=== PATIENT | female | born 1995 | race Caucasian/White ===

== ENCOUNTER 2020-03-15 18:30 | Outpatient (CLI) | payer SELFPAY ==
[2020-03-15 18:45] VITALS: BP 136/92; PULSE 73; TEMP 36.7; O2SAT 99
[2020-03-15 18:47] VITALS: PULSE 74; O2SAT 99
[2020-03-15 18:56] VITALS: BMI 31.8
[2020-03-15] MEDS: Lactated Ringers 1,000 ML 999 ML IV (20:07)
[2020-03-15] MEDS: Betamethasone/Betamethasone 30 MG/5 ML Vial 12 MG IM (20:18)
[2020-03-15 20:42] VITALS: BP 120/75; PULSE 69; TEMP 36.7
[2020-03-15 20:43] VITALS: PULSE 70; O2SAT 99
[2020-03-15 20:46] LABS: Bacteria 0 SEEN /hpf (None Seen); Mucous, Urine 0 SEEN /hpf (<or=2+); Red Blood Cells-Urine 0 SEEN /hpf (0-5); White Blood Cells 0 SEEN /hpf (0-5)
[2020-03-15 20:50] LABS: Color, Urine Yellow (Yellow); Glucose, Dipstick Normal (Normal); Ketone-Dipstick Negative (Negative); Leukocyte Esterase-Dipstick 25 /ul (Negative); Nitrite-Dipstick Negative (Negative); Occult Blood-Urine 250 /ul (Negative); Protein-Dipstick Negative (Negative); Urine Bilirubin Dipstick Negative (Negative); Urine Clarity Clear (Clear); Urine Urobilinogen Normal (Normal)
[2020-03-15 21:13] LABS: Squamous Epithelial Cells - UA 0-5 SEEN /hpf (5-10)
[2020-03-15 21:25] VITALS: PULSE 72; O2SAT 100
--- NOTE | 2020-03-16 09:51 | OB.TRI.HP_ITS ---
History of Present Illness Date of Service: 03/15/20 Was patient seen by the physician?: No Reason For Visit: BLEEDING, r/o labor Date of Service: 03/15/20 Final CLEMENCIA: 04/27/20 Final CLEMENCIA Source: LMP Gestational age: 34 Weeks and 0 Days History of Present Illness: I received a call from [employer] Officer- to transport patient to [place] to rule out labor. @ 33.6 weeks that had some vaginal spotting and crocodile farmer reports that she could feel the head and that she was about 1-2cm dilated. upon arrival at hospital pt was noted to have contractions but did not rate them as being painful. No other complaints. Allergies No Known Allergies Allergy (Verified 03/16/20 06:30) Laboratory Studies: Laboratory Tests 03/15/20 Range/Units 19:30 Urine Color Yellow (Yellow) Urine Clarity Clear (Clear) Urine pH 7.0 (5.0 - 8.0) Ur Specific [place] 1.010 (1.002-1.030) Urine Protein Negative (Negative) mg/dl Urine Glucose (UA) Normal (Normal) mg/dl Urine Ketones Negative (Negative) mg/dl Urine Occult Blood 250 H (Negative) /ul Urine Nitrite Negative (Negative) Urine Bilirubin Negative (Negative) mg/dL Urine Urobilinogen Normal (Normal) mg/dl Ur Leukocyte Esterase 25 H (Negative) /ul Urine RBC 0 SEEN (0-5) /hpf Urine WBC 0 SEEN (0-5) /hpf Ur Squamous Epith Cells 0-5 SEEN (5-10) /hpf Urine Bacteria 0 SEEN (None Seen) /hpf Urine Mucus 0 SEEN (<or=2+) /hpf Physical Exam Vitals: Vital Signs Temp Pulse BP Pulse Ox 98.1 F 72 120/75 100 03/15/20 20:42 03/15/20 21:25 03/15/20 20:42 03/15/20 21:25 Presentation: Cephalic Cervix Dilation (cm): 1.5 Station: -1 Effacement (%): 60 NST - FHR Rate Baby A Baseline: 140 Variability:: Moderate Accelerations:: 15 x 15 Decelerations:: None NST Reactive:: Yes FHR Category:: Category I Uterine Activity:: started at q2-4 min then irregular and progoress to occasional ctx only. Impression/Plan @ 33.6 weeks- r/o labor, contractions 1) pt was monitored for several hours with no change in cervical exam- pt was given option to stay overnight for further observation or to be dc home and return if ctx return and become more intense. pt opted for dc home 2) Celestone 12mg IM given- will repeat second dose in 24 hrs 3)
== END 2020-03-15 22:55 | disposition home or self-care (01) ==
LOC: WPOUT 18:41 → WP 18:41
PROVIDERS: Visit Provider Obstetrics & Gynecology
DX: O47.03 False labor before 37 completed weeks of gestation, third trimester (principal); Z3A.33 33 weeks gestation of pregnancy
CPT/HCPCS: 59025; 59050; 81001; 96372; 99218; J7120; G0378; J0702

== ENCOUNTER 2020-03-16 06:45 | Inpatient (IN) | payer SELFPAY ==
[2020-03-15 18:56] VITALS: BMI 31.8
[2020-03-16] VITALS (21 sets, daily range): BP systolic 128–142; BP diastolic 77–94; PULSE 61–108; RESP 16–18; TEMP 36.2–37.1; O2SAT 97–99; BMI 31.1
[2020-03-16 07:29] LABS: Color, Urine Yellow (Yellow); Glucose, Dipstick Normal (Normal); Ketone-Dipstick Negative (Negative); Leukocyte Esterase-Dipstick 500 /ul (Negative); Mucous, Urine 0 SEEN /hpf (<or=2+); Nitrite-Dipstick Negative (Negative); Occult Blood-Urine 150 /ul (Negative); Protein-Dipstick Negative (Negative); Urine Bilirubin Dipstick Negative (Negative); Urine Clarity Clear (Clear); Urine Urobilinogen Normal (Normal)
[2020-03-16 07:40] LABS: Amphetamine Urine VISTA NEGATIVE (<1000 ng/mL); Barbiturate Urine VISTA NEGATIVE (< 200 ng/mL); Benzodiazepine Urine VISTA NEGATIVE (< 200 ng/mL); Cocaine Urine VISTA NEGATIVE (< 300 ng/mL); Ecstacy Urine VISTA NEGATIVE (< 500 ng/mL); Methadone Urine VISTA NEGATIVE (< 300 ng/mL); PCP Urine VISTA NEGATIVE (< 25 ng/mL); THC Urine VISTA NEGATIVE (< 50 ng/mL); Vista UDS pH Range 6
[2020-03-16] MEDS: Lactated Ringers 1,000 ML 999 ML IV (07:40)
[2020-03-16 07:41] LABS: Squamous Epithelial Cells - UA 0-5 SEEN /hpf (5-10)
[2020-03-16 07:43] LABS: Red Blood Cells-Urine 0-5 SEEN /hpf (0-5)
[2020-03-16 07:44] LABS: White Blood Cells 0-5 SEEN /hpf (0-5)
[2020-03-16 07:46] LABS: Bacteria RARE /hpf (None Seen)
[2020-03-16 07:58] LABS: Absolute Lymphocyte Count 0.86 X10^3/uL (0.83-4.51); Absolute Neutrophil Count 13.2 X10^3/uL (2.0-7.7); Basophil# 0.02 X10^3/uL; Basophil% 0.1 % (0-1); Eosinophil# 0.19 X10^3/uL; Eosinophils% 1.3 % (0-5); Hematocrit 36.2 % (37-47); Hemoglobin 12.6 g/dL (12.0-15.0); Lymphocyte # 0.86 X10^3/ul (4.0); Lymphocyte % 5.8 % (19-41); Mean Corp Hgb Conc 34.8 g/dL (32-36); Mean Corpuscular Hgb 29.8 pg (27.0-32.0); Mean Corpuscular Volume 85.6 fL (81-99); Mean Platelet Vol. 10.5 fl (6.2-12.0); Monocyte# 0.42 X10^3/uL; Monocyte% 2.8 % (0-10); NRBC Flagged by Analyzer 0 % (0-5); Neutrophil # 13.22 X10^3/uL (2.7-7.7); Neutrophil % 88.9 % (47-70); POSITIVE MORPHOLOGY YES; Platelet Count 210 K/mm3 (150-450); RBC Distribution Width CV 13.6 % (11.6-14.6); Red Blood Count 4.23 M/mm3 (4.2-5.4); White Blood Count 14.9 K/mm3 (4.4-11.0)
[2020-03-16 07:59] LABS: Differential Indicated SCAN CRITERIA MET
--- NOTE | 2020-03-16 08:16 | HP.PCM_ITS ---
- Problem List (1) 34 weeks gestation of Status: Acute (2) labor Status: Acute Qualifiers: labor trimester: third trimester Fetus number: single or unspecified fetus History Date of Admission: 03/16/20 Final CLEMENCIA: 04/27/20 Gestational age: 34 Weeks and 0 Days History of this : This is a 24 year-old, G [1], P [0], at 34.0 weeks gestational age that presents with labor. 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 Patient is unknown to practice. Per records, no significant medical history. Allergies No Known Allergies Allergy (Verified 03/16/20 06:30) Smoking Status: Never smoker Alcohol: None Number of Fetus(es): 1 NST - FHR Rate Baby A Baseline: 140 Variability:: Moderate Accelerations:: 10 x 10 Decelerations:: None NST Reactive:: Appropriate for gestational age History Past Pregnancies: Past Pregnancies Delivery Date Name GA/ Weeks Outcome Route Wt Sex Labor Length Anesthesia Delivery Location Provider FOB Labs: O+ GBS- unknown COVID- 19 negative Expected Infant Delivery Method: Spontaneous Vaginal Review of Systems Constitutional: Denies: Chills, Fever HEENT: Denies: Head Aches Cardiovascular: Denies: Chest Pain Respiratory: Denies: Cough Genitourinary: Denies: Dysuria Physical Exam Vitals: Vital Signs Temp Pulse BP Pulse Ox 98.4 F 61 131/82 H 97 03/16/20 08:08 03/16/20 08:15 03/16/20 08:11 03/16/20 08:15 General: Alert, Oriented x3 Cardiovascular: Regular rate Lungs: Normal air movement Abdomen: Soft, Non Tender Neurological: Cranial nerves II-XII grossly intact Cervix Dilation (cm): 4 Assessment/Plan All Active Problems 34 weeks gestation of (Acute) labor (Acute) This is a 24 year-old, G [1], P [0], at 34 weeks gestational age in labor. Admit to labor and delivery Draw all labs IV fluids per protocol Rapid GBS COVID-19 negative Celestone 12 mg IM x 1 now and repeat in [address] Albarado managing patient and is collaborating physician
--- NOTE | 2020-03-16 08:21 | PCM.PN.BLA ---
Progress Note At bedside with pt. Admitted at 34 wks with threatened labor. She is uncomfortable with ctx's. Category 1 tracing. S/p 1 dose of BMZ. Will start PCN for GBS unknown. panel pending. Reviewed pain control options with the pt. Will recheck 4 hours from last check if no change clinically. Pt and partner's questions answered. STROKE Vital Signs/Narrative: Vital Signs Temp Pulse BP Pulse Ox 03/16/20 08:15 61 97 03/16/20 08:11 61 131/82 H 03/16/20 08:08 98.4 F 03/16/20 06:24 97.9 F 61 142/94 H 98
[2020-03-16] MEDS: Acetaminophen 500 MG Tablet PO (08:27)
[2020-03-16 08:28] LABS: Platelet Estimate ADEQUATE (ADEQ); Red Cell Morphology NORM C+C NORMAL (NORM C&C)
[2020-03-16 08:33] LABS: Rubella IgG Non-Reactive (Nonreactive)
[2020-03-16] MEDS: Lactated Ringers 1,000 ML 50 ML IV (08:42)
[2020-03-16 09:01] LABS: Group B Strep DNA By PCR Negative (Negative); Internal Control PASS; Probe Check PASS; Specimen Processing Control PASS
[2020-03-16 09:06] LABS: HIV - WCH Non-Reactive (Nonreactive); Hepatitis B Surface Antigen Non-Reactive (Nonreactive); Hepatitis C Antibody Non-Reactive (Nonreactive)
[2020-03-16] MEDS: Oxytocin 30 units/NS 500 ml 30 UNITS/500 ML IV.SOLN 334 UNITS IV (09:35)
--- NOTE | 2020-03-16 09:54 | PCM.OPRPT ---
Vaginal Delivery Maternal Presentation: Active Labor Amniotic Fluid Description: Clear Final CLEMENCIA: 04/27/20 Gestational age: 34 Weeks and 0 Days Date of Procedure: 03/16/20 Pre-Operative Diagnosis: laor Post-Operative Diagnosis: same Surgery/ Procedure Performed: Spontaneous Vaginal Delivery Type of Anesthesia: Local with 1% lidocaine - 15 cc Description of Procedure: A vigorous male was delivered [DAJA] over degree perineal laceration with a small right-sided laceration. The remainder the was delivered with maternal pushing and gentle traction only in less than 15 seconds. The Pitocin infusion was initiated for active management of the third stage. The cord was clamped and cut [after 1 minute]. The infant was attended to by the waiting nursing staff. The placenta was delivered spontaneously and intact. The cervix and vagina were intact. The first-degree vaginal and perineal laceration were repaired with 3-0 Vicryl suture in a running standard fashion. Hemostasis was assured. Sponge and needle counts were correct. A vaginal sweep was completed by me. Delivery time 0932 Presentation: DAJA Placental Delivery Description: Spontaneous Placenta Disposition: Sent to Pathology Cord Vessel Description: 3 Vessels Cord Gases drawn per routine: ABG, VBG Cord Entanglement: None Drain: - - none Estimated Blood Loss: 400 Infant A gender: Male Episiotomy Description: None Laceration: 1st degree - perineal Medications given after delivery: IV Pitocin Complications: None
[2020-03-16 11:46] LABS: Chlamydia Trachomatis by PCR Negative (Negative); Neisserai gonorrhoeae by PCR Negative (Negative); Specimen Processing Control PASS
[2020-03-16 11:47] LABS: Probe Check PASS; Sample Adequacy Control PASS
--- NOTE | 2020-03-16 13:00 | NURSING ---
Mother viewed pumping at this time. at bedside. Reminders for settings placed on whiteboard by this RN for suction and cycles. Patient educated on how to tell how long pumping session has been going for. Reminded to pump every three hours. Patient verbalizes understanding. Will continue to monitor and assist.
[2020-03-17 00:25] VITALS: BP 133/78; PULSE 72; RESP 18; TEMP 36.9
[2020-03-17 03:33] LABS: Rapid Plasmin Reagin (RPR) NONREACTIVE (NONREACTIVE)
[2020-03-17 03:50] VITALS: BP 132/83; PULSE 80; RESP 18; TEMP 36.7
[2020-03-17 08:13] VITALS: BP 147/92; PULSE 66
[2020-03-17 08:17] VITALS: BP 125/79; PULSE 72; RESP 16; TEMP 36.6
--- NOTE | 2020-03-17 08:49 | PN.OBGYN_ITS ---
Patient Problems: Active and Suspected Problems 34 weeks gestation of (Acute) labor (Acute) - Physical Exam Vitals/I&O's: Vital Signs Temp Pulse Resp BP Pulse Ox 97.8 F 72 16 125/79 H 99 03/17/20 08:17 03/17/20 08:17 03/17/20 08:17 03/17/20 08:17 03/16/20 11:45 Oxygen Delivery Method Room Air Weight: 159 lb 6 oz Body Mass Index (BMI) 31.1 Intake and Output for Last 24 Hours 03/15/20 03/16/20 03/17/20 23:59 23:59 23:59 Intake Total 1544.17 / 1544.17 Output Total 550 / 550 Balance 994.17 / 994.17 General: Alert, Oriented x3, Cooperative HEENT: Atraumatic, PERRLA Lungs: Clear to auscultation, Normal air movement, No rhonchi, No wheeze Cardiovascular: Regular rate, Regular Rhythm, No murmurs Abdomen: Bowel Sounds Present, Soft - Fundus firm 2 below U Extremities: No edema - Jean Paul's negative bilaterally Psych/Mental Status: Normal Affect, Appropriate Microbiology Past 72 Hours 03/16/20 07:05 Mucosa - Nose SARS-CoV-2 Antigen (Rapid) - Final Laboratory Results 03/16/20 07:05: Group B Strep DNA Negative, Specimen Comment Not Reportable 03/16/20 07:35: RPR NONREACTIVE 03/16/20 07:35: Blood Type O POSITIVE, Antibody Screen NEGATIVE 03/16/20 07:35: Hep Bs Antigen Non-Reactive, Hepatitis C Antibody Non-Reactive, HIV 1&2 Antibody Non-Reactive 03/16/20 07:35: Chlam trachomat DNA PCR Negative, N.gonorrhoeae DNA (PCR) Negative Current Medications Acetaminophen (Acetaminophen 500 Mg Tablet) 1,000 mg PO Q8H PRN PRN PRN Reason: Pain Score 1-3 Bisacodyl (Bisacodyl 10 Mg Suppository) 10 mg RECTAL UD PRN PRN Reason: If no BM Dibucaine (Dibucaine 30 Gm Tube) 1 applic TOPICAL TID PRN PRN; Protocol PRN Reason: Discomfort Hydrocortisone (Hydrocortisone 2.5% Crm) 1 applic TOPICAL TID PRN PRN; Protocol PRN Reason: Discomfort Ibuprofen (Ibuprofen 600 Mg Tablet) 600 mg PO Q6H PRN PRN PRN Reason: Pain Score 1-3 Methylergonovine Maleate (Methylergonovine 0.2 Mg/Ml Ampul) 0.2 mg IM X1 PRN PRN Reason: Excess bleeding/uterine atony Ondansetron HCl (Ondansetron 4 Mg/2 Ml Vial) 4 mg IV Q4H PRN PRN PRN Reason: Nausea Senna/Docusate Sodium (Senna/Docusate Sodium 1 Tablet) 1 - 2 tablet PO DAILY PRN PRN PRN Reason: Constipation Simethicone (Simethicone 80 Mg Tablet) 80 mg PO PCHS PRN PRN Reason: Indigestion/Stomach pain Sodium Chloride (0.9% Saline Lock 10 Ml Syringe) 5 - 15 ml IV UD PRN PRN Reason: SALINE FLUSH Medical Necessity - Tobacco Use Smoking Status: Never smoker Assessment/Plan All Active Problems 34 weeks gestation of (Acute) labor (Acute) A:PPD #1 vaginal Elevated BP P: 1) Routine and instructions. Pumping breast milk at this time 2) BP mildly elevated, no history of elevated BP. Will call with BP this evening and once daily next two days. Appointment in 3 days. Reviewed preeclampsia symptoms and when to call. 3) Baby being transferred to [facility], discharge so that she can be with baby. 4) D/C
--- NOTE | 2020-03-17 11:50 | DCINST_ITS ---
Discharge Diet: No Restrictions Discharge Activity: Return to Normal Activity, May Shower, May Take a Tub Bath May resume sexual activity in: 4-6 weeks Weight Bearing Status: Full weight bearing Additional Activity Instructions:: Nothing in the vagina for 4-6 weeks. You may return to work/school in 6 weeks. Call your doctor if your incision/area has: Continuous Slow Oozing, Sudden Increased Bleeding, Increased Pain/ Swelling, Increased Redness, Foul Smelling Discharge Call your doctor if you observe: Fever of 101 or Higher, Inability to urinate, Inability to have a bowel movement, Using more than one pad per hour, Chest pain, Increased palpitations (irregular heartbeat), Calf discomfort, Uncontrolled pain Additional Instructions: If you experience any of the following, contact your healthcare provider. * Bleeding that soaks a pad every hour for 2 hours * Fever 100.4 or higher * Unrelieved incision or abdominal pain * Swelling, redness, discharge or bleeding from your incision or episiotomy site * Your incision begins to separate * Problems urinating (including inability to urinate or burning while urinating). * Visual changes * Severe headache * Flu-like symptoms * Pain or redness in one of both of your breasts * Pain, warmth, tenderness or swelling in your legs, especially the calf area * Frequent nausea and vomiting * Symptoms of depression or anxiety If you experience any of the following, call 911 or go to the nearest Emergency Room. * Chest pain * Problems breathing * Seizure activity * Partial or complete paralysis of a body part, slurred speech, weakness or drooping of the face, or a sudden inability to walk or hold your balance Allergies/Adverse Reactions: Allergies No Known Allergies Allergy (Verified 03/16/20 06:30) Medications to take at Discharge Ibuprofen [Motrin] 600 mg PO Q6H PRN PRN tablet 03/17/20 Please Follow Up With: Zoe Garcia MD When: Call to make an appointment with your doctor in 6 weeks. Call to make appointment for BP check on 03/20/20. Call veterans contact representative provider [phone] to discuss Blood pressure over the weekend once a day. Primary Care Physician: Care Physician,No Primary [Primary Care Provider] - Test Results: Test results from this visit will be discussed in further detail at your follow- up appointment, if applicable.
[2020-03-17 14:06] VITALS: BP 137/86; PULSE 86; RESP 16; TEMP 36.9
[2020-03-17 14:08] VITALS: BP 131/82; PULSE 75
--- NOTE | 2020-03-17 15:48 | NURSING ---
Pt refused MMR vaccine
== END 2020-03-17 15:20 | disposition home or self-care (01) | DRG 807 ==
LOC: WPOUT 07:00 → WP 07:00
PROVIDERS: Obstetrics & Gynecology; Admitting Provider Obstetrics & Gynecology; Referring Provider Obstetrics & Gynecology; Visit Provider Obstetrics & Gynecology
DX: O60.13X0 Preterm labor second trimester with preterm delivery third trimester, not applicable or unspecified (principal); Z37.0 Single live birth; Z3A.34 34 weeks gestation of pregnancy; O70.0 First degree perineal laceration during delivery
CPT/HCPCS: 59050; 80307; 81001; 85025; 86592; 86703; 86762; 86803; 86850; 86900; 86901; 87081; 87340; 87426; 87491; 87591; 87653; 99218; J7120; G0378

== ENCOUNTER 2021-05-16 13:40 | Outpatient (CLI) | payer OTHER, SELFPAY ==
[2021-05-16 14:00] VITALS: TEMP 36.3
[2021-05-16 14:01] VITALS: BP 137/89; PULSE 87
[2021-05-16 14:06] VITALS: BMI 34.6
[2021-05-16 15:02] VITALS: BP 135/88; PULSE 100
[2021-05-16] MEDS: NIFEdipine 10 MG Capsule PO (15:17)
[2021-05-16] MEDS: Lactated Ringers 500 ML 999 ML IV (15:19)
[2021-05-16 15:25] LABS: Bacteria 0 SEEN /hpf (None Seen); Mucous, Urine 0 SEEN /hpf (<or=2+); Red Blood Cells-Urine 0 SEEN /hpf (0-5); White Blood Cells 0 SEEN /hpf (0-5)
[2021-05-16 15:31] LABS: Absolute Lymphocyte Count 0.95 X10^3/uL (0.83-4.51); Basophil# 0.03 X10^3/uL; Basophil% 0.2 % (0-1); Eosinophil# 0.03 X10^3/uL; Eosinophils% 0.2 % (0-5); Hematocrit 36.7 % (37-47); Hemoglobin 12.7 g/dL (12.0-15.0); Lymphocyte # 0.95 X10^3/ul (0.83-4.51); Lymphocyte % 7.2 % (19-41); Mean Corp Hgb Conc 34.6 g/dL (32-36); Mean Corpuscular Hgb 30.2 pg (27.0-32.0); Mean Corpuscular Volume 87.2 fL (81-99); Mean Platelet Vol. 10.4 fl (6.2-12.0); Monocyte# 1.01 X10^3/uL; Monocyte% 7.7 % (0-10); NRBC Flagged by Analyzer 0 % (0-5); Neutrophil # 10.97 X10^3/uL (2.7-7.7); Neutrophil % 83.7 % (47-70); Platelet Count 175 K/mm3 (150-450); RBC Distribution Width CV 14.8 % (11.6-14.6); RBC Distribution Width SD 46.7 fl (35.1-43.9); Red Blood Count 4.21 M/mm3 (4.2-5.4); White Blood Count 13.1 K/mm3 (4.4-11.0)
[2021-05-16 15:55] LABS: Color, Urine Yellow (Yellow); Glucose, Dipstick Normal (Normal); Ketone-Dipstick Negative (Negative); Leukocyte Esterase-Dipstick Negative /ul (Negative); Nitrite-Dipstick Negative (Negative); Occult Blood-Urine Negative /ul (Negative); Protein-Dipstick Negative (Negative); Urine Bilirubin Dipstick Negative (Negative); Urine Clarity Clear (Clear); Urine Urobilinogen Normal (Normal)
[2021-05-16] MEDS: Betamethasone/Betamethasone 30 MG/5 ML Vial 12 MG IM (16:04)
[2021-05-16 16:25] LABS: Squamous Epithelial Cells - UA 0-5 SEEN /hpf (5-10)
[2021-05-16 16:28] LABS: Amphetamine Urine VISTA NEGATIVE (<1000 ng/mL); Barbiturate Urine VISTA NEGATIVE (< 200 ng/mL); Benzodiazepine Urine VISTA NEGATIVE (< 200 ng/mL); Cocaine Urine VISTA NEGATIVE (< 300 ng/mL); Ecstacy Urine VISTA NEGATIVE (< 500 ng/mL); Methadone Urine VISTA NEGATIVE (< 300 ng/mL); PCP Urine VISTA NEGATIVE (< 25 ng/mL); THC Urine VISTA NEGATIVE (< 50 ng/mL); Vista UDS pH Range 6
--- NOTE | 2021-05-16 16:39 | HP.PCM.OB_ITS ---
HPI - General HPI Narrative This is a transfer note and history and physical for [employer]IE [employer]. Patient arrived to labor and delivery. She was sent here today by her maintenance carpenter. She has been having contractions that got more severe throughout the day. She denies any vaginal bleeding or leaking of fluid. She said good movement. She has not had any ultrasounds during the . She has history of one previous and current . Previous was complicated by 34-week vaginal delivery. She received 1 dose of betamethasone. The had to be transported to for special care NICU care to [facility]. She denies any complications during this . She has been taking herbs at home to try and slow down her contractions. When she arrived to labor and delivery she was found to be approximately 2 cm and 80% effaced, and this is what her leg maintenance carpenter thought she was when she checked her cervix. When I examined the patient she had changed to 380-1 station. The head was well applied. A brief ultrasound was done that showed a vertex fetus. Decision was made to transport the patient. Maternal Data Information Final CLEMENCIA: 06/17/21 Gestational age: 33 PFSH PFSH Home Medications ibuprofen 600 mg PO Q6H PRN PRN tab 03/17/20 [Rx Last Taken Unknown] Allergy/AdvReac Type Severity Reaction Status Date / Time No Known Allergies Allergy Verified 03/16/20 06:30 Social History Smoking Status: Never smoker History Elective abortions Hx Para 0 Spontaneous abortions Hx # Term Pregnancies Ectopic pregnancies Hx # Pregnancies Multiple births # of living children ROS Constitutional Constitutional: Denies fatigue, fever(s) or malaise Eyes Eyes: Denies change in vision ENT HEENT: Denies dizziness or headache(s) Cardiovascular Cardiovascular: Denies chest pain, dyspnea or lightheadedness Respiratory/Chest Respiratory/Chest: Denies cough or dyspnea Gastrointestinal Gastrointestinal: Denies change in bowel habits Genitourinary Genitourinary: Denies burning urination or genital lesions Integumentary Integumentary: Denies rash Neurologic Neurologic: Denies confusion, dizziness, headache(s), numbness or weakness Vital Signs Vital Signs Vital Signs: 05/16/21 14:00 05/16/21 14:01 05/16/21 15:02 Temperature 97.3 F L Pulse Rate 87 100 Blood Pressure 137/89 H 135/88 H BP Systolic 137 135 BP Diastolic 89 88 Weight Weight: 80.5 kg Body Mass Index (BMI) 34.6 Physical Exam Const alert and no apparent distress General Appearance: cooperative HEENT normocephalic Resp normal respiratory effort Cardio regular rate GI soft to palpation GI Narrative: gravid, nontender, appropriate for gestational age Extremity no calf tenderness General Extremity: edema Skin no wounds Rashes: No rashes noted Psych activity/motor behavior normal Labs Labs Labs: Blood Type O POSITIVE Antibody Screen NEGATIVE Hct 36.7 % (37-47) L Hgb 12.7 g/dL (12.0-15.0) Syphilis Total Ab Pending Rubella IgG Antibody Non-Reactive (Nonreactive) Hep Bs Antigen Non-Reactive (Nonreactive) HIV 1&2 Antibody Non-Reactive (Nonreactive) C.trachomatis DNA (PCR) Negative (Negative) Group B Strep DNA Negative (Negative) Rhogam given: No Assessment & Plan (1) labor: QUALIFIERS: labor trimester: third trimester Fetus number: single or unspecified fetus (2) 33 weeks gestation of : PLAN: Patient given a dose of betamethasone x1. Rapid group B strep was sent. Risk benefits alternatives to transport to [facility] with impending bad weather were discussed with the patient. Her and her desire transport to [facility]. Transport was arranged with maternal- medicine at [facility]. Patient was given 10 mg of Procardia to help slow contractions. She was also given an IV fluid bolus. Brief ultrasound confirmed vertex. panel was drawn.
[2021-05-16 16:40] LABS: Group B Strep DNA By PCR Negative (Negative); Internal Control PASS; Probe Check PASS; Specimen Processing Control PASS
[2021-05-16 17:00] LABS: HIV - WCH Non-Reactive (Nonreactive); Hepatitis B Surface Antigen Non-Reactive (Nonreactive); Hepatitis C Antibody Non-Reactive (Nonreactive)
[2021-05-16 17:10] LABS: Chlamydia Trachomatis by PCR Negative (Negative); Neisserai gonorrhoeae by PCR Negative (Negative); Probe Check PASS; Sample Adequacy Control PASS; Specimen Processing Control PASS
[2021-05-17 07:57] LABS: Rubella IgG Non-Reactive (Nonreactive); Syphilis Antibodies Non-reactive
== END 2021-05-16 23:59 | disposition short-term general hospital (02) ==
LOC: WPOUT 13:49 → WP 13:50
PROVIDERS: Visit Provider Obstetrics & Gynecology
DX: O60.03 Preterm labor without delivery, third trimester (principal); Z3A.33 33 weeks gestation of pregnancy
CPT/HCPCS: 96365; 96366 ×2; 96372; 36415; 59025; 59050; 80307; 81001; 85025; 86703; 86762; 86780; 86803; 86850; 86900; 86901; 87081; 87340; 87426; 87491; 87591; 87653; 99218; J7120; G0378; J0702